=== PATIENT | female | born 1945 | race Caucasian/White ===

== ENCOUNTER 2016-06-08 15:49 | Emergency (ER) | payer OTHER ==
[2016-06-08 16:00] VITALS: TEMP 97.9
--- NOTE | 2016-06-08 16:10 | EDPHY ---
H & P Time Seen by Provider: 06/08/16 16:05 HPI/ROS: CHIEF COMPLAINT: Dizziness HISTORY OF PRESENT ILLNESS: This patient is a 71 year old female referred to the Emergency Department by [facility] for persistent dizziness first presenting 5-7 days prior to arrival and worsening over time. Dizziness first presented while showering and was completely alleviated with one dose of Valium. Her dizziness returned yesterday with associated nausea and has been increasing in severity since that time. She also reports accompanying pressure to the posterior aspect of her head and to her forehead. She describes the dizziness as "room spinning" and states that her symptoms are exacerbated when attempting to walk or when she closes her eyes; dizziness is not exacerbated when turning her head side to side. Her symptoms are alleviated when remaining still. She denies difficulty speaking or swallowing. No blurred vision, double vision, or hearing changes. No unilateral weakness. She denies medical history of cardiac disease, diabetes, or hypertension. REVIEW OF SYSTEMS: Constitutional: No fever, no chills Eyes: No visual changes ENT: No sore throat Respiratory: No cough, no shortness of breath Cardiac: No chest pain Gastrointestinal: No nausea, no vomiting, no abdominal pain Genitourinary: No hematuria, no dysuria Musculoskeletal: No leg pain or swelling Skin: No rash Neurological: +head pressure, +dizziness, no numbness, no weakness Psychiatric: No depression Past Medical/Surgical History: Ulcerative colitis, fibromyalgia, depression. Social History: Never smoked. Drinks socially. Daughter at bedside. She reports feeling stressed due to recent of her mother. Smoking Status: Never smoked Physical Exam: General Appearance: Alert, no distress Eyes: Pupils equal and round, no conjunctival pallor or injection, horizontal nystagmus with fast component to the left ENT, Mouth: Mucous membranes moist Neck: Normal inspection Respiratory: Lungs are clear to auscultation Cardiovascular: Regular rate and rhythm Gastrointestinal: Abdomen is soft and non- tender Neurological: A&O, nonfocal, cranial nerves II through XII intact, motor 5/5, sensory intact to light touch, steady gait with list to the left Skin: Warm and dry, no rash Extremities: Nontender, no pedal edema Psychiatric: Mood and affect normal Constitutional: Initial Vital Signs Temperature (C) 36.6 C 06/08/16 15:55 Heart Rate 67 06/08/16 15:55 Respiratory Rate 19 06/08/16 15:55 Blood Pressure 133/80 H 06/08/16 15:55 O2 Sat (%) 90 L 06/08/16 15:55 O2 Delivery Mode Room Air Allergies/Adverse Reactions: Sulfa (Sulfonamide Antibiotics) Allergy (Verified 06/08/16 15:53) Home Medications: Medication Instructions Recorded Balsalazide Dose Unk 10/17/12 Biast Dose Un10/17/12 Celexa Dose 10/17/12 Ondansetron Odt [Zofran Odt] 4 mg PO Q4PRN #6 tab 10/17/12 Progesterone Dose Unk 10/17/12 Thyroid Med Dose k 10/17/12 Meclizine HCl [Meclizine HCl 25 mg 25 mg PO TID PRN #15 tab 06/08/16 (RX,OTC)] Medical Decision Making - Diagnostics EKG Interpretation: EKG interpreted by me reveals sinus rhythm, rate 58; borderline left axis deviation. Imaging: Study: MRI of the Indication: Vertigo Results: MRI of the brain was obtained. 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 The study was read by the radiologist, Dr. Zechariah Cabrales. I viewed the images myself on the PACS system. ED Course/Re-evaluation: The patient presents with complaints consistent with vertigo. She describes "room spinning" dizziness that is positional and resolves with use of Valium. On exam, she has an unsteady gait with listing to the right and horizontal nystagmus also suggestive of vertigo. I discussed with her the multiple potential etiologies for her complaints as well as my recommendation that we proceed with MRI of the brain, labs, and EKG. She is agreeable to this. 25mg PO Antivert administered. Labs reviewed and are unremarkable. EKG obtained and is negative. 1911: Imaging results reported to me by Dr. Cabrales. 1912: I discussed imaging and lab results with the patient. She reports that her dizziness has improved 50% since administration of Meclizine. She will be discharged home with Meclizine to use as needed for vertigo and follow-up with ENT specialist. She is agreeable to this and understands return to the ED precautions. Differential Diagnosis: Dizziness including but not limited to peripheral and central causes of vertigo , orthostatic causes including dehydration, and blood loss. - Data Points Laboratory Results: Laboratory Results 06/08/16 17:30 06/08/16 16:40 06/08/16 06/08/16 06/08/16 17:30 16:40 16:40 WBC 9.28 10^3/uL 10^3/uL TNP (3.80-9.50) RBC 4.26 10^6/uL 10^6/uL Not Reported (4.18-5.33) Hgb 13.0 g/dL g/dL Not Reported (12.6-16.3) Hct 38.9 % % Not Reported (38.0-47.0) MCV 91.3 fL fL Not Reported (81.5-99.8) MCH 30.5 pg pg Not Reported (27.9-34.1) MCHC 33.4 g/dL g/dL Not Reported (32.4-36.7) RDW 12.4 % % Not Reported (11.5-15.2) Plt Count 298 10^3/uL 10^3/uL Not Reported (150-400) MPV 10.5 fL fL Not Reported (8.7-11.7) Neut % (Auto) 50.2 % % Not Reported (39.3-74.2) Lymph % (Auto) 40.4 % % Not Reported (15.0-45.0) [place] % (Auto) 7.3 % % Not Reported (4.5-13.0) Eos % (Auto) 1.4 % % Not Reported (0.6-7.6) Baso % (Auto) 0.5 % % Not Reported (0.3-1.7) Nucleat RBC Rel Count 0.0 % % Not Reported (0.0-0.2) Absolute Neuts (auto) 4.65 10^3/uL 10^3/uL Not Reported (1.70-6.50) Absolute Lymphs (auto) 3.75 10^3/uL H 10^3/uL Not Reported (1.00-3.00) Absolute Monos (auto) 0.68 10^3/uL 10^3/uL Not Reported (0.30-0.80) Absolute Eos (auto) 0.13 10^3/uL 10^3/uL Not Reported (0.03-0.40) Absolute Basos (auto) 0.05 10^3/uL 10^3/uL Not Reported (0.02-0.10) Absolute Nucleated RBC 0.00 10^3/uL 10^3/uL Not Reported (0-0.01) Immature Gran % 0.2 % % Not Reported (0.0-1.1) Immature Gran # 0.02 10^3/uL 10^3/uL Not Reported (0.00-0.10) Sodium 141 mEq/L mEq/L (134-144) Potassium 4.5 mEq/L mEq/L (3.5-5.2) Chloride 106 mEq/L mEq/L (97-110) Carbon Dioxide 25 mEq/l mEq/l (22-31) Anion Gap 10 mEq/L mEq/L (8-16) BUN 28 mg/dL H mg/dL (7-23) Creatinine 0.8 mg/dL mg/dL (0.6-1.0) Estimated GFR > 60 Glucose 92 mg/dL mg/dL (70-100) Calcium 10.0 mg/dL mg/dL (8.5-10.4) Medications Given: Discontinued Medications Meclizine HCl (Meclizine Hcl) 25 mg PO EDNOW ONE Stop: 06/08/16 16:57 Last Admin: 06/08/16 17:03 Dose: 25 mg Departure - Departure Disposition: Home, Routine, Self-Care Clinical Impression: Vertigo Condition: Good Instructions: Vertigo (ED) Additional Instructions: 1. Take 25mg Antivert (Meclizine) up to three times daily, as needed to treat your vertigo. 2. Follow-up with an ENT specialist in 5-7 days for further evaluation if your symptoms do not improve, and to discuss long-term treatment options for vertigo. 3. Return to the Emergency Department if you experience severe headache, difficulty swallowing or speaking, weakness or numbness on one side of your body , or other serious concerns. Referrals: Josee Berger MD [Primary Care Provider] - As per Instructions Frank Silva MD [Medical Doctor] - As per Instructions Prescriptions: Meclizine HCl [Meclizine HCl 25 mg (RX,OTC)] 25 mg PO TID PRN #15 tab PRN Reason: Dizziness Report Scribed for: Noemi Spear Report Scribed by: Mariana Subramanian Date of Report: 06/08/16 Time of Report: 16:10 Physician Review and Approval Statement: 06/08/16 16:10 Portions of this note were transcribed by a medical insurance coder. I personally performed a history, physical exam, medical decision making, and confirmed accuracy of information the transcribed note.
--- NOTE | 2016-06-08 16:38 | CPEKG ---
Heart Rate: 58 RR Interval: 1034 P-R Interval: 172 QRSD Interval: 86 QT Interval: 428 QTC Interval: 421 P [place]: 70 QRS [place]: -24 T Wave [place]: 54 EKG Severity - OTHERWISE NORMAL ECG - EKG Impression: SINUS RHYTHM EKG Impression: BORDERLINE LEFT AXIS DEVIATION Electronically Signed By: Noemi Spear 09-Jun-2016 21:21:15
[2016-06-08] MEDS ORDERED: MECLIZINE HCL 25 MG TAB PO ONE (16:56)
[2016-06-08 16:59] LABS: ADD DIFF? NO
[2016-06-08 17:07] LABS: ANION GAP 10 mEq/L (8-16); CARBON DIOXIDE 25 mEq/l (22-31); CHLORIDE 106 mEq/L (97-110); CREATININE 0.8 mg/dL (0.6-1.0); GLOMERULAR FILTRATION RATE > 60; GLUCOSE 92 mg/dL (70-100); POTASSIUM 4.5 mEq/L (3.5-5.2); SODIUM 141 mEq/L (134-144)
[2016-06-08 17:40] LABS: % IMMATURE GRANULYOCYTES 0.2 % (0.0-1.1); ABSOLUTE IMMATURE GRANULOCYTES 0.02 10^3/uL (0.00-0.10); ADD DIFF? NO; ADD MORPH? NO; ADD SCAN? NO; ATYPICAL LYMPHOCYTE FLAG 0 (0-99); FRAGMENT RBC FLAG 0 (0-99); HEMATOCRIT 38.9 % (38.0-47.0); LEFT SHIFT FLG 0 (0-99); LIPEMIA HEMOLYSIS FLAG 80 (0-99); MEAN CELL HEMOGLOBIN 30.5 pg (27.9-34.1); MEAN CELL HEMOGLOBIN CONCENTR. 33.4 g/dL (32.4-36.7); MEAN CELL VOLUME 91.3 fL (81.5-99.8); MEAN PLATELET VOLUME 10.5 fL (8.7-11.7); PLATELET CLUMPS FLAG 10 (0-99); PLATELET COUNT 298 10^3/uL (150-400); RED BLOOD CELL COUNT 4.26 10^6/uL (4.18-5.33); RED CELL DISTRIBUTION WIDTH 12.4 % (11.5-15.2)
[2016-06-08 19:25] VITALS: BP 123/76; PULSE 60; RESP 18; O2SAT 96
== END 2016-06-08 19:24 | disposition home or self-care (01) ==
DX: R42 Dizziness and giddiness (principal)

== ENCOUNTER → 2016-07-24 | Outpatient (CLI) | payer OTHER | LOC: BMCIMAGING 14:30 | DX: Z12.31 Encounter for screening mammogram for malignant neoplasm of breast (principal); M81.0 Age-related osteoporosis without current pathological fracture | CPT/HCPCS: G0202 ==

== ENCOUNTER → 2017-01-30 | Outpatient (CLI) | payer OTHER | LOC: BMCIMAGING 09:13 | PROVIDERS: ATTEND Podiatrist Foot & Ankle Surgery | DX: M77.32 Calcaneal spur, left foot (principal); M85.80 Other specified disorders of bone density and structure, unspecified site ==

== ENCOUNTER → 2017-09-16 | Outpatient (CLI) | payer OTHER | LOC: BMCIMAGING 08:06 | PROVIDERS: ATTEND Psychiatry & Neurology Psychiatry | DX: Z12.31 Encounter for screening mammogram for malignant neoplasm of breast (principal); Z80.3 Family history of malignant neoplasm of breast ==

== ENCOUNTER → 2018-07-30 | Outpatient (CLI) | payer OTHER | LOC: BMCIMAGING 13:53 | PROVIDERS: ATTEND Internal Medicine Endocrinology, Diabetes & Metabolism | DX: M81.0 Age-related osteoporosis without current pathological fracture (principal); E07.9 Disorder of thyroid, unspecified ==

== ENCOUNTER → 2018-09-04 | Outpatient (CLI) | payer OTHER | LOC: BMCIMAGING 11:27 ==